=== PATIENT | female | born 1995 | race Caucasian/White ===

== ENCOUNTER 2017-07-23 12:45 | Emergency (ER) | payer OTHER ==
[~2017-07-23] VITALS: Ht 162.6 cm; Wt 55.3 kg
[~2017-07-23 12:45] MED LIST: CEFADROXIL500 MG PO; FLAGYL500MG PO; SEPTRA DS TABLE1 TAB PO
== END 2017-07-23 21:51 | disposition home or self-care (01) ==
LOC: ER 12:45
DX: K52.9 Noninfective gastroenteritis and colitis, unspecified (principal); E86.0 Dehydration

== ENCOUNTER 2017-10-01 13:25 | Emergency (ER) | payer OTHER ==
[~2017-10-01] VITALS: Ht 162.6 cm; Wt 55.3 kg
== END 2017-10-01 17:18 | disposition home or self-care (01) ==
LOC: ER 13:25
DX: O21.0 Mild hyperemesis gravidarum (principal); Z33.1 Pregnant state, incidental

== ENCOUNTER 2017-10-02 08:52 | Emergency (ER) | payer OTHER ==
[~2017-10-02] VITALS: Ht 162.6 cm; Wt 68.5 kg
== END 2017-10-02 17:09 | disposition home or self-care (01) ==
LOC: ER 08:52
DX: O21.0 Mild hyperemesis gravidarum (principal); Z34.01 Encounter for supervision of normal first pregnancy, first trimester

== ENCOUNTER → 2017-10-13 | Emergency (ER) | payer OTHER ==
[~2017-10-13] VITALS: Ht 162.6 cm; Wt 50.8 kg
[~2017-10-13] MED LIST changes: +FOLIC ACID1 MG; +PEPCID AC20 MG PO; +ZOFRAN ODT4 MG PO
== END | disposition home or self-care (01) ==
LOC: ER 23:01
DX: O21.0 Mild hyperemesis gravidarum (principal); Z34.01 Encounter for supervision of normal first pregnancy, first trimester

== ENCOUNTER 2017-11-07 15:10 | Emergency (ER) | payer OTHER ==
[~2017-11-07] VITALS: Ht 162.6 cm; Wt 52.6 kg
== END 2017-11-07 21:26 | disposition home or self-care (01) ==
LOC: ER 15:10
DX: O21.0 Mild hyperemesis gravidarum (principal); O23.41 Unspecified infection of urinary tract in pregnancy, first trimester; Z34.01 Encounter for supervision of normal first pregnancy, first trimester

== ENCOUNTER 2018-07-21 22:58 | Emergency (ER) | payer OTHER ==
[~2018-07-21] VITALS: Ht 160 cm; Wt 61.7 kg
[2018-07-21] MEDS ORDERED: SYNTHROID50 MCG (23:10)
[2018-07-22] MEDS ORDERED: ZYNCOF 20-400120 ML PO (03:56)
[2018-07-22] MEDS ORDERED: ALBUTEROL2.5 MG/3 M IH (03:56)
[2018-07-22] MEDS ORDERED: DOLOGESIC 500-1 EACH PO (03:56)
== END 2018-07-22 04:23 | disposition home or self-care (01) ==
LOC: ER 22:58
DX: B34.9 Viral infection, unspecified (principal); R50.9 Fever, unspecified

== ENCOUNTER 2019-02-07 11:32 | Emergency (ER) | payer OTHER ==
[~2019-02-07] VITALS: Ht 157.5 cm; Wt 72.6 kg
[~2019-02-07 11:32] MED LIST changes: +ALBUTEROL2.5 MG/3 M IH; +DOLOGESIC 500-1 EACH PO; +SYNTHROID50 MCG; +ZYNCOF 20-400120 ML PO
== END 2019-02-07 14:38 | disposition home or self-care (01) ==
LOC: ER 11:32
DX: K52.9 Noninfective gastroenteritis and colitis, unspecified (principal)

== ENCOUNTER 2019-07-05 01:38 | Emergency (ER) | payer OTHER ==
[~2019-07-05] VITALS: Ht 162.6 cm; Wt 59.0 kg
[2019-07-05] MEDS ORDERED: PEPCID40 MG PO (07:24)
[2019-07-05] MEDS ORDERED: PROTONIX40 MG PO (07:24)
[2019-07-05] MEDS ORDERED: INTESTINEX680 M1 PO (07:24)
[2019-07-05] MEDS ORDERED: PHENERGAN25 MG PO (07:24)
== END 2019-07-05 07:40 | disposition home or self-care (01) ==
LOC: ER 01:38
DX: K52.89 Other specified noninfective gastroenteritis and colitis (principal)

== ENCOUNTER 2020-06-06 14:53 | Emergency (ER) | payer OTHER ==
[~2020-06-06] VITALS: Ht 162.6 cm; Wt 64.9 kg
[~2020-06-06 14:53] MED LIST changes: +INTESTINEX680 M1 PO; +PEPCID40 MG PO; +PHENERGAN25 MG PO; +PROTONIX40 MG PO
== END 2020-06-06 20:22 | disposition home or self-care (01) ==
LOC: ER 14:53
DX: M54.2 Cervicalgia (principal); M54.89 Other dorsalgia

== ENCOUNTER 2020-08-13 14:37 | Emergency (ER) | payer OTHER ==
[~2020-08-13] VITALS: Ht 162.6 cm; Wt 64.9 kg
== END 2020-08-13 18:33 | disposition home or self-care (01) ==
LOC: ER 14:37
DX: R11.11 Vomiting without nausea (principal); N39.0 Urinary tract infection, site not specified

== ENCOUNTER 2020-08-28 19:20 | Emergency (ER) | payer OTHER ==
[~2020-08-28] VITALS: Ht 162.6 cm; Wt 64.9 kg
[2020-08-28] MEDS ORDERED: TYLENOL (19:36)
[2020-08-28] MEDS ORDERED: MEDROLPACK PO (23:07)
[2020-08-28] MEDS ORDERED: MUCINEX DM ER1 EAC1 PO (23:07)
[2020-08-28] MEDS ORDERED: AZITHROMYCIN500 MG PO (23:07)
[2020-08-28] MEDS ORDERED: ZYRTEC10 MG PO (23:18)
== END 2020-08-28 23:39 | disposition home or self-care (01) ==
LOC: ER 19:20
DX: J06.9 Acute upper respiratory infection, unspecified (principal)

== ENCOUNTER 2021-01-30 17:30 | Emergency (ER) | payer OTHER ==
[~2021-01-30] VITALS: Ht 162.6 cm; Wt 69.4 kg
[~2021-01-30 17:30] MED LIST changes: +AZITHROMYCIN500 MG PO; +MEDROLPACK PO; +MUCINEX DM ER1 EAC1 PO; +TYLENOL; +ZYRTEC10 MG PO
[2021-01-30] MEDS ORDERED: CORTISPORIN EAR10 M1 OPHT (20:36)
[2021-01-30] MEDS ORDERED: MEDROLPACK PO (20:37)
[2021-01-30] MEDS ORDERED: CORTISPORIN EAR10 M1 OT (20:39)
== END 2021-01-30 21:18 | disposition home or self-care (01) ==
LOC: ER 17:30
DX: J06.9 Acute upper respiratory infection, unspecified (principal); H60.91 Unspecified otitis externa, right ear

== ENCOUNTER 2021-02-14 21:43 | Emergency (ER) | payer OTHER ==
[~2021-02-14] VITALS: Ht 162.6 cm; Wt 68.9 kg
[~2021-02-14 21:43] MED LIST changes: +CORTISPORIN EAR10 M1 OPHT; +CORTISPORIN EAR10 M1 OT
[2021-02-14] MEDS ORDERED: BUTALBIT-ACETA1 EACH PO (21:55)
== END 2021-02-15 | disposition home or self-care (01) ==
LOC: ER 21:43
DX: G43.909 Migraine, unspecified, not intractable, without status migrainosus (principal)

== ENCOUNTER 2022-04-16 14:08 | Emergency (ER) | payer OTHER ==
[~2022-04-16] VITALS: Ht 162.6 cm; Wt 69.9 kg
[~2022-04-16 14:08] MED LIST changes: +BUTALBIT-ACETA1 EACH PO
== END 2022-04-16 20:27 | disposition home or self-care (01) ==
LOC: ER 14:08
DX: R09.81 Nasal congestion (principal); Z88.6 Allergy status to analgesic agent; Z88.2 Allergy status to sulfonamides; Z20.822 Contact with and (suspected) exposure to COVID-19